=== PATIENT | female | born 1940 | race Caucasian/White ===

== ENCOUNTER → 2018-12-08 | Outpatient (CLI) | payer MEDICARE ==
[2015-09-29 14:14] VITALS: BP 134/62
[~2018-12-08] MED LIST: ALBU1.25 IH; BENZ-8 PO; FERR325T14 PO; FLUT1DIS5 IH; HYDR-3164 PO; HYDR12.58 PO; LEVO137T3 PO; LIALDA1.2 GM PO; LISI10TA2 PO; LOSA100T14 PO; LOVA40TA2 PO; MOME17SP NS; MONT10TA9 PO; MV-M1TAB7 PO; PRED10TA16 PO; PRED1TAB3 PO; RANI300T3 PO; TAMO20TA PO; VENL75CA PO
--- NOTE | 2018-12-08 17:36 | KCIC ---
Double contrast barium enema 12/08/2018 CLINICAL HISTORY: Anemia. Incomplete colonoscopy. TECHNIQUE: A double contrast barium enema was performed under fluoroscopic and radiographic control.. The total fluoroscopic time for this study was 5 minutes 12 seconds. 11 digital spot radiographs were obtained. FINDINGS: An AP digital radiograph abdomen/pelvis was obtained as a weeder thinner. This demonstrated surgical clips in the left upper quadrant of the abdomen. The patient is post kyphoplasty type procedure involving the T12 vertebral body. The abdominal bowel gas pattern is nonobstructive. No radiopaque calculus is seen. There is diffuse osteopenia the visualized bony structures. Degenerative changes are seen involving the lumbar spine and both hips. The entire colon is distended with barium and air. The cecum is in its normal location within the right lower quadrant of the abdomen. Extensive diverticula are seen throughout the colon. No additional mucosal abnormality is seen. No annular constricting lesion is noted. No extrinsic mass effect upon the large bowel is identified. IMPRESSION: Colonic diverticulosis. Otherwise negative study. Electronically signed by: Miguel Bella MD (12/08/2018 5:33 PM) [facility]
== END | disposition home or self-care (01) ==
LOC: KCIC 08:00
PROVIDERS: ATTEND Internal Medicine Gastroenterology
DX: K57.30 Diverticulosis of large intestine without perforation or abscess without bleeding (principal); D64.9 Anemia, unspecified; J45.909 Unspecified asthma, uncomplicated; Z88.2 Allergy status to sulfonamides
CPT/HCPCS: 74270

== ENCOUNTER → 2019-01-19 | Outpatient (CLI) | payer MEDICARE ==
[2015-09-29 14:14] VITALS: BP 134/62
[~2019-01-19] MED LIST changes: +LIDOCAINE 1%/EPI 1:100,000 20 ML VIAL. INJ ONE
--- NOTE | 2019-01-21 14:07 | PATHOLOGY ---
[facility] Accession Number: [id number] . 01 Material submitted: . breast - RIGHT BREAST BIOPSY, 10:00, 5CFN. Modifiers: right, 10:00 . 01 Clinical history: . Right breast BX/mass 10OC 5cfn (1.7cm) . 02 Diagnosis: Breast tissue, right breast mass 10:00 needle biopsies: - INVASIVE DUCTAL CARCINOMA, HIGH GRADE. SEE COMMENT. LBQ/01/21/2019 . 02 Comment: Sections of the right breast mass 10:00 needle biopsies reveal an invasive mammary carcinoma. The tumor cells are present in irregular solid nests which infiltrate a reactive desmoplastic stroma and show little tubule formation. Some of the tumor cell nests show focal tumor necrosis. Tumor cells show moderate to marked nuclear pleomorphism. The tumor shows focal prominent mitoses. There a few associated calcifications. There is no lymphovascular tumor invasion. The invasive carcinoma measures up to 1.1 cm in greatest dimension on the glass slide. The morphologic findings are supportive of the diagnosis of an invasive high grade ductal carcinoma. The case is also examined by Dr. Monoey, who concurs with the diagnosis. Breast prognostic studies will be obtained, the results of which will be reported separately. (JPM/db; 01/20/2019) . 02 Electronically signed: . Josse Sheikh MD, Pathologist NPI- [id number] . 01 Gross description: . The specimen is received in formalin, labeled "Maye Abarca, Rt breast 10oc 5cfn" and consists of 4 distinct needle cores of yellow-booth fibroadipose tissue measuring between 0.6 cm and 1.4 cm in length and 0.2 cm each in diameter which are submitted entirely in A1. The specimen was obtained at 10:15 AM on 01/19/2019 and placed in formalin at 10:20 AM. The cold ischemic time is 5 minutes and the total formalin fixation time is greater than 6 hours but less than 72 hours. (SDY; 01/19/2019) SYU/SYU . 02 Pathologist provided ICD-10: C50.911 . 02 CPT . 708701 Specimen Comment: A courtesy copy of this report has been sent to Specimen Comment: [phone], , . Specimen Comment: Report sent to ,DR BAPTISTE / DR MELO Performed at: 01 [facility] [address], [place], [place] [id number] MD Florentino Farah MD Phone: [phone] Performed at: 02 [facility] [address], [place] [id number] MD Josse Sheikh MD Phone: [phone]
--- NOTE | 2019-01-24 10:48 | RAD ---
Ultrasound-guided right breast biopsy, 01/19/2019: History: Breast mass Previous studies demonstrated a suspicious nodule at the 10:00 location in the right breast. Under local anesthesia, aseptic conditions and sonographic guidance a total of four 14-gauge core samples were obtained from this lesion via a lateral approach. A biopsy marker was then deposited at the biopsy site. Hemostasis was obtained. Two-view postprocedural digital mammograms were then obtained to document position of the biopsy marker which lies at the level of the medial edge of the biopsied mass. The patient tolerated the procedure well and left the department in good condition. The subsequent pathology report indicated the presence of invasive ductal carcinoma, high-grade. This is considered to be concordant finding. Note: The findings were called to personnel in Dr. Rodriguez's office at 10:44 AM on 01/24/2019.
== END | disposition home or self-care (01) ==
LOC: US 09:30
PROVIDERS: ATTEND Surgery
DX: C50.411 Malignant neoplasm of upper-outer quadrant of right female breast (principal); Z88.2 Allergy status to sulfonamides; I10 Essential (primary) hypertension; J45.909 Unspecified asthma, uncomplicated; Z85.3 Personal history of malignant neoplasm of breast; Z90.12 Acquired absence of left breast and nipple; Z90.710 Acquired absence of both cervix and uterus; Z98.890 Other specified postprocedural states; Z90.81 Acquired absence of spleen
CPT/HCPCS: 19083; 77065; 88305; 88361; C1713; 19081; 76942

== ENCOUNTER 2019-01-28 09:22 | Day surgery (SDC) | payer MEDICARE ==
[~2019-01-28] VITALS: Ht 165.1 cm; Wt 86.2 kg
[~2019-01-28 09:22] MED LIST changes: +ACETAMINOPHEN 500 MG TABLET PO ONE; +BUPIVACAINE-EPI 0.25%-1:200000 MPF 30 ML VIAL. ONE; -HYDR-3164 PO; +ISOSULFAN BLUE 50 MG/5 ML VIAL. SQ ONE; -LIDOCAINE 1%/EPI 1:100,000 20 ML VIAL. INJ ONE
[2019-01-28] MEDS ORDERED: LIDOCAINE 2% PF 5 ML VIAL. ONE (10:06)
[2019-01-28] MEDS ORDERED: PROPOFOL 20 ML IV ONE (10:06)
[2019-01-28] MEDS ORDERED: ONDANSETRON PF 4 MG/2 ML VIAL. ONE (10:06)
[2019-01-28] MEDS ORDERED: fentaNYL PF VIAL 100 MCG/2 ML VIAL ONE ×3 (10:07→13:30)
[2019-01-28] MEDS ORDERED: DEXAMETHASONE SOD PHOS 4 MG/ML VIAL ONE (10:07)
[2019-01-28] MEDS ORDERED: ACETAMINOPHEN 500 MG TABLET PO ONE (10:12)
[2019-01-28] MEDS ORDERED: LIDOCAINE WITH 8.4% SOD BICARB 3 ML DISP.SYRIN. INJ ONE (10:15)
--- NOTE | 2019-01-28 11:17 | RAD ---
Right breast sentinel node localization, 01/28/2019: HISTORY: Breast cancer Under aseptic conditions and utilizing ethyl chloride spray for topical anesthesia a total of 0.9 mCi of filtered technetium 99m sulfur colloid mixed with 0.5 cc of 1 percent buffered lidocaine was injected subdermally in the right periareolar region in 4 divided doses. No imaging was performed. The patient was sent to surgery in good condition. Electronically signed by: Jose Godfrey MD (01/28/2019 11:14 AM) [facility]
[2019-01-28] MEDS ORDERED: ISOSULFAN BLUE 50 MG/5 ML VIAL. SQ ONE (11:30)
[2019-01-28] MEDS ORDERED: ePHEDrine PF IN SALINE 50 MG/10 ML SYRINGE. IV ONE (11:33)
--- NOTE | 2019-01-28 12:32 | PDOC4 ---
Operative Note Operative Note Date: 01/28/2019 Preoperative diagnosis: Invasive ductal carcinoma the right breast Postoperative diagnosis: Same Procedure: Right breast lumpectomy with axillary node dissection Surgeon: Michael Specimen: Right breast lumpectomy and right axillary content Dictation: Patient is a 78-year-old female who was found to have a mass of the right breast this underwent ultrasound guided breast biopsy which showed invasive ductal carcinoma. Patient elected to have a lumpectomy with sentinel lymph node biopsy procedure of lumpectomy and sentinel lymph node biopsy was explained to the patient detail risk benefits were also discussed including bleeding infection seroma formation alternatives to this procedure also discussed with the patient who seemed to understand and gave both verbal and written consent to have the procedure performed. Patient was taken to the operating room placed the supine position general anesthesia was initiated once patient was sleep and intubated her chest was prepped and draped usual sterile fashion using ChloraPrep as well as axilla she previously undergone injection of radionucleotide for lymph node mapping. Lymphazurin was injected into 4 quadrants around the nipple areolar complex with 1.5 cm in each quadrant this was massaged into the tissue for 5 minutes. She was then made with the tracer to find the sentinel node unfortunately I think because she had previous reconstruction multiple surgeries did not appear to be working. Incision was made in the right axilla this was carried down to through the subcutaneous anus tissues at cautery again no blue Lymphazurin was seen in the axilla and there was no detectable radionucleotide within the axilla. Some the superficial axilla content was sent for pathology tinges of then turned to the lumpectomy incision was made over the mass in the outer mid quadrant of the breast this is carried down through the subcutaneous tissue using electrocautery to provide hemostasis. The mass was fully excised all the way down to the pectoralis muscle. Tensions are then turned back to the right axilla lower further axillary content were removed and sent for pathology.Aristra was applied to the axillary and breast wounds and then the wounds were then closed in 2 layers a deep layer running 3-0 Vicryl and the skin was approximate for septic or Monocryl. Mastisol Steri- Strips and island dressings were applied patient was awakened and asked bated operating room taken to recovery in stable condition all sponge instrument needle counts listed as correct estimated blood loss 20 mL. REMINGTON BAPTISTE MD January 28, 2019 12:32
--- NOTE | 2019-01-28 12:34 | DISCH ---
DISCHARGE INSTRUCTIONS Condition on Discharge Condition on Discharge: Stable Activity After Discharge Activity Instructions for Disc: Avoid exertion Diet after Discharge Diet after Discharge: Regular Wound Incision Care Other wound/incision instructi: Kathy shower in 24 hours Contacting the after DC Call your doctor for: If your condition worsens Follow-Up Follow up with: Dr. Baptiste in 2 weeks REMINGTON BAPTISTE MD January 28, 2019 12:34
[2019-01-28] MEDS ORDERED: HYDR-3164 PO (12:51)
[2019-01-28] MEDS ORDERED: HYDROcodone/APAP 5/325MG 1 TAB TABLET PO ONE ×2 (13:00)
[2019-01-28 14:24] VITALS: BP 160/64
[2019-01-28] MEDS ORDERED: fentaNYL PF VIAL 100 MCG/2 ML VIAL IV ONE (15:30)
--- NOTE | 2019-02-03 15:06 | PATHOLOGY ---
[facility] Accession Number: [id number] . 01 Material submitted: . PART A: axillary tail of breast - RIGHT AXILLARY CONTENT. Modifiers: right PART B: breast - RIGHT LUMPECTOMY. Modifiers: right PART C: breast - RIGHT BREAST ADDITIONAL DEEP TISSUE. Modifiers: right PART D: axillary tail of breast - RIGHT AXILLARY CONTENT. Modifiers: right . 01 Clinical history: . Breast cancer. . 02 Diagnosis: A. Fibroadipose tissue, right axillary content: - Ectopic mammary tissue, focal, showing no significant pathologic abnormalities. - No lymph nodes identified. . B. Segment of breast tissue, right breast lumpectomy: - INVASIVE DUCTAL CARCINOMA, HIGH GRADE, FORMING A TUMOR MASS HAVING IRREGULAR MARGINS MEASURING APPROXIMATELY 1.8 CM IN GREATEST DIMENSION. - DUCTAL CARCINOMA IN SITU, HIGH-GRADE, SOLID AND CRIBRIFORM TYPE. - INVASIVE CARCINOMA IS FOCALLY APPROXIMATELY 0.2 CM FROM THE CLOSEST MEDIAL MARGIN OF RESECTION. - DUCTAL CARCINOMA IN SITU IS FOCALLY APPROXIMATELY 0.4 CM FROM THE CLOSEST MEDIAL MARGIN OF RESECTION. - Previous biopsy site changes. - Proliferative fibrocystic changes with focal moderate/florid ductal epithelial hyperplasia. . C. Fibroadipose tissue, right breast additional deep tissue: - Negative for tumor. . D. Fibroadipose tissue and lymph nodes, right axillary contents: - Fourteen lymph nodes negative for tumor (0/14). (JPM:[facility]; 02/01/2019) . . SURGICAL PATHOLOGY CANCER CASE SUMMARY . Protocol posting date: October 2018 . INVASIVE CARCINOMA OF THE BREAST: Resection . Procedure ___ Other (specify): Lumpectomy . Specimen Laterality ___ Right . Tumor Site (select all that apply, as appropriate) ___ Upper outer quadrant . Tumor Size ___ Greatest dimension of largest invasive focus >1 mm (specify exact measurement) (millimeters): 18 mm . Histologic Type ___ Invasive carcinoma of no special type (invasive ductal carcinoma, not otherwise specified) . Histologic Grade (Lufkin Histologic Score) Glandular (Acinar)/Tubular Differentiation ___ Score 3 (<10% of tumor area forming glandular/tubular structures) . Nuclear Pleomorphism ___ Score 2 (cells larger than normal with open vesicular nuclei, visible nucleoli, and moderate variability in both size and shape) . Mitotic Rate ___ Score 3 . Overall Grade ___ Grade 3 (scores of 8 or 9) . Tumor Focality ___ Single focus of invasive carcinoma . Ductal Carcinoma In Situ (DCIS) ___ Present ___ Negative for extensive intraductal component (EIC) . ARCHITECTURAL PATTERNS ___ Solid ___ Cribriform . Nuclear Grade (if DCIS is present in specimen) ___ Grade II - III . Necrosis (If DCIS is present in specimen) ___ Present, focal (small foci or single cell necrosis) . Lobular Carcinoma In Situ (LCIS) ___ No LCIS in specimen . Margins . Invasive Carcinoma Margins (required only if residual invasive carcinoma is present in specimen) ___ Uninvolved by invasive carcinoma ___ Distance from closest margin (millimeters): 2 mm ___ Specify closest margin (required only if <10mm): medial margin . DCIS Margins (required only if DCIS is present in specimen) ___ Uninvolved by DCIS ___ Distance from closest margin (millimeters): 4 mm ___ Specify closest margin (required only if <10mm): medial margin . Regional Lymph Nodes ___ Uninvolved by tumor cells ___ Number of Lymph Nodes Examined: 14 ___ Number of Mcdonald Nodes Examined (if applicable): 0 . Lymphovascular Invasion ___ Not identified . Pathologic Stage Classification (pTNM, AJCC 8th Edition) . Primary Tumor (pT) ___ pT1c:Tumor >10 mm but =20 mm in greatest dimension . Regional Lymph Nodes (pN) ___ pN0:No regional lymph node metastasis identified or ITCs only# . Additional Pathologic Findings ___ See diagnoses . . Microcalcifications (select all that apply) + ___ Present in DCIS + ___ Present in invasive carcinoma + ___ Present in non-neoplastic tissue . Clinical History (select all that apply) The current clinical/radiologic breast findings for which this surgery is performed include: ___ Palpable mass . Radiologic Finding (select all that apply) ___ Mass or architectural distortion . (JPM:[facility]; 02/03/2019) QMS/02/03/2019 . 02 Electronically signed: . Josse Sheikh MD, Pathologist NPI- [id number] . 01 Gross description: . A. Received in formalin labeled "Maye Abarca, 1. right axillary content" is a portion of yellow-booth lobulated fibroadipose tissue measuring 5.5 x 3.6 x 1.3 cm. The specimen is palpated to reveal no grossly identifiable lymph nodes. The fibroadipose tissue is submitted entirely in cassettes A1-A3. . B. Received in formalin labeled "Maye Abarca, right lumpectomy, long stitch lateral, short stitch superior" is an oriented breast lumpectomy specimen weighing 84 g and measuring 7.3 cm from anterior to posterior, 7.0 cm from superior to inferior, and 4.4 cm from medial to lateral. The specimen is inked as follows: superior-red, inferior-blue, anterior-green, posterior-black, lateral-orange, medial-yellow. The specimen is sectioned from anterior to posterior into 13 slices. Within slices 9-11 is a booth-white solid stellate mass measuring 3.0 x 1.7 x 1.5 cm. The mass measures to the margins as follows: 1.5 cm to superior, 0.9 cm to inferior, 3.5 to anterior, 1.4 cm to posterior, 1.2 cm to lateral, and 0.2 cm to medial. An S shaped biopsy clip is identified in slice 9. The uninvolved breast parenchyma is yellow-booth lobulated. Sow Manager sections are submitted as follows: B1 field sales representative slice 1, anterior margin, perpendicular sections B2 field sales representative slice 8 (uninvolved), adjacent to lesion B3-B6 entire slice 9 B7-B8 field sales representative slice 10 B9 field sales representative slice 11 B10 field sales representative slice 13, posterior margin, perpendicular sections The specimen is removed from the patient and placed in formalin at unspecified times on January 28, 2019. The specimen is removed from formalin at 1850 on January 30, 2019. . C. Received in formalin labeled "Maye Abarca, right breast additional deep tissue" is an irregular portion of yellow-booth lobulated fibroadipose tissue measuring 6.1 x 3.3 x 0.8 cm. The true margin is not specified. One aspect is inked blue and the opposite aspect is inked black. The specimen is serially sectioned and submitted entirely in cassettes C1-C4. . D. Received in formalin labeled "Maye Abarca, 4. right axillary content" is a portion of yellow-booth lobulated fibroadipose tissue measuring 8.6 x 6.0 x 1.5 cm. The specimen is palpated to reveal multiple pink-booth lymph nodes ranging from 0.3-3.7 cm in greatest dimension. The specimen is submitted entirely as follows: D1 multiple whole lymph nodes D2-D5 one bisected lymph node in each cassette D6-D9 largest lymph node, serially sectioned and divided between four cassettes D10-D14 remaining fibroadipose tissue. ([facility]; 01/30/2019) SYC/SYC . 02 Pathologist provided ICD-10: C50.411, D05.11, N60.11, N62 . 02 CPT . 609228, 010696, 109721, 079893 Specimen Comment: A courtesy copy of this report has been sent to Specimen Comment: [phone]. Specimen Comment: Report sent to DR MELO Performed at: 01 [facility] [address], [place] [id number] MD Florentino Farah MD Phone: [phone] Performed at: 02 [facility] [address] [place], [place] [id number] MD Josse Sheikh MD Phone: [phone]
== END 2019-01-28 14:24 | disposition home or self-care (01) ==
LOC: NM 09:22
PROVIDERS: ATTEND Surgery
DX: C50.411 Malignant neoplasm of upper-outer quadrant of right female breast (principal); Z88.2 Allergy status to sulfonamides; I10 Essential (primary) hypertension; Z87.01 Personal history of pneumonia (recurrent); F32.9 Major depressive disorder, single episode, unspecified; J45.909 Unspecified asthma, uncomplicated; E03.9 Hypothyroidism, unspecified; E78.5 Hyperlipidemia, unspecified; D64.9 Anemia, unspecified; Z90.12 Acquired absence of left breast and nipple; Z90.81 Acquired absence of spleen; Z90.721 Acquired absence of ovaries, unilateral; Z98.890 Other specified postprocedural states; Z90.710 Acquired absence of both cervix and uterus; Z82.49 Family history of ischemic heart disease and other diseases of the circulatory system; Z82.5 Family history of asthma and other chronic lower respiratory diseases; Z81.8 Family history of other mental and behavioral disorders; Z79.899 Other long term (current) drug therapy; Z83.49 Family history of other endocrine, nutritional and metabolic diseases
CPT/HCPCS: 19301; 38525; 38792; 88305; 88307; 96374; A7015; A9541; J0171; J0696; J1100; J2001; J2405; J2704; J3010; J7120; Q9968

== ENCOUNTER 2019-04-14 06:20 | Day surgery (SDC) | payer MEDICARE ==
[~2019-04-14] VITALS: Ht 165.1 cm; Wt 82.5 kg
[~2019-04-14 06:20] MED LIST changes: -ACETAMINOPHEN 500 MG TABLET PO ONE; +BUPIVACAINE MPF 0.25% 30 ML VIAL. ONE; -BUPIVACAINE-EPI 0.25%-1:200000 MPF 30 ML VIAL. ONE; +CHOL10003 PO; +FOLI1TAB16 PO; +HEPARIN PF 500 UNIT/5 ML DISP.SYRIN. IV ONE; +HEPARIN for IV BOLUS 10,000 UNIT/10 ML VIAL. ONE; +HYDR-3164 PO; +IPRA3AMP29 NEB; -ISOSULFAN BLUE 50 MG/5 ML VIAL. SQ ONE; +MONT10TA49 PO; -MONT10TA9 PO; +TRAM50TA PO; +VENTOLIN HFA18 GM INH
[2019-04-14] MEDS ORDERED: HEPARIN PF 500 UNIT/5 ML DISP.SYRIN. IV ONE (06:39)
[2019-04-14] MEDS ORDERED: PROCHLORPERAZINE 10 MG/2 ML VIAL. IV PRN (07:00)
[2019-04-14] MEDS ORDERED: ONDANSETRON PF 4 MG/2 ML VIAL. IV PRN (07:00)
[2019-04-14] MEDS ORDERED: MORPHINE SULFATE 2 MG/ML VIAL. IV PRN (07:00)
[2019-04-14] MEDS ORDERED: IV RINGERS,LACTATED 1000ML 1,000 ML IV SCH (07:00)
[2019-04-14] MEDS ORDERED: HYDROmorphone 2 MG/ML VIAL IV PRN (07:00)
[2019-04-14] MEDS ORDERED: fentaNYL PF VIAL 100 MCG/2 ML VIAL IV PRN ×2 (07:00)
[2019-04-14] MEDS ORDERED: LIDOCAINE 2% PF 5 ML VIAL. ONE (07:34)
[2019-04-14] MEDS ORDERED: PROPOFOL 50 ML IV ONE (07:34)
[2019-04-14] MEDS ORDERED: fentaNYL PF VIAL 100 MCG/2 ML VIAL ONE (07:35)
--- NOTE | 2019-04-14 07:47 | PDOC1 ---
History and Physical Date of Admission Date of Admission DATE: 04/14/19 TIME: 07:43 Identification/Chief Complaint Chief Complaint Right breast cancer Source Source: Patient History of Present Illness History of Present Illness 79-year-old female recently underwent a lumpectomy of the right breast found to have invasive carcinoma the breast underwent sentinel node dissection and is now needing long-term venous access for chemotherapy Past Medical History Cardiovascular: HTN Pulmonary: Asthma GI: No pertinent hx Heme/Onc: Anemia NOS Hepatobiliary: No pertinent hx Psych: No pertinent hx Rheumatologic: No pertinent hx Infectious disease: No pertinent hx ENT: No pertinent hx Renal/: No pertinent hx Endocrine: Hypothyroidism Past Surgical History Past Surgical History: Mastectomy, Other (thyroidectomy Keri fundoplication splenectomy right breast lumpectomy) Family History Family History: No Significant Social History Smoke: No ALCOHOL: none Drugs: None Current Medications Current Medications Current Medications Ondansetron HCl (Zofran) 4 mg PRN Q6HRS PRN IV NAUSEA/VOMITING; Start 04/14/19 at 07:00; Stop 04/15/19 at 06:59 Fentanyl Citrate (Fentanyl 2ml Vial) 25 mcg PRN Q5MIN PRN IV MILD PAIN 1-3; Start 04/14/19 at 07:00; Stop 04/15/19 at 06:59 Fentanyl Citrate (Fentanyl 2ml Vial) 50 mcg PRN Q5MIN PRN IV MODERATE TO SEVERE PAIN; Start 04/14/19 at 07:00; Stop 04/15/19 at 06:59 Morphine Sulfate (Morphine Sulfate) 1 mg PRN Q10MIN PRN IV SEVERE PAIN 7-10; Start 04/14/19 at 07:00; Stop 04/15/19 at 06:59 Ringer's Solution 1,000 ml @ 30 mls/hr Q24H IV Last administered on 04/14/19at 06:59; Start 04/14/19 at 07:00; Stop 04/14/19 at 18:59 Hydromorphone HCl (Dilaudid) 0.5 mg PRN Q10MIN PRN IV SEV PAIN, Second choice; Start 04/14/19 at 07:00; Stop 04/15/19 at 06:59 Prochlorperazine Edisylate (Compazine) 5 mg PACU PRN PRN IV NAUSEA, MRX1; Start 04/14/19 at 07:00; Stop 04/15/19 at 06:59 Cefazolin Sodium/ Dextrose 50 ml @ 100 mls/hr 1X PREOP PRN IV PRIOR TO PROCEDURE; Start 04/14/19 at 06:00; Stop 04/14/19 at 18:00 Heparin Sodium (Porcine) (Hep Lock Adult) 500 unit STK-MED ONCE IV ; Start 04/14/19 at 06:19; Stop 04/14/19 at 07:19; Status DC Heparin Sodium (Porcine) (Heparin Sodium) 10,000 unit STK-MED ONCE .ROUTE ; Start 04/14/19 at 06:19; Stop 04/14/19 at 07:19; Status DC Bupivacaine HCl (Sensorcaine Mpf 0.25%) 30 ml STK-MED ONCE .ROUTE ; Start 04/14/19 at 06:19; Stop 04/14/19 at 07:19; Status DC Lidocaine HCl (Lidocaine Pf 2% Vial) 5 ml STK-MED ONCE .ROUTE ; Start 04/14/19 at 07:34; Stop 04/14/19 at 07:35; Status DC Propofol 50 ml @ As Directed STK-MED ONCE IV ; Start 04/14/19 at 07:34; Stop 04/14/19 at 07:35; Status DC Fentanyl Citrate (Fentanyl 2ml Vial) 100 mcg STK-MED ONCE .ROUTE ; Start 04/14/19 at 07:35; Stop 04/14/19 at 07:36; Status DC Heparin Sodium (Porcine) (Hep Lock Adult) 500 unit STK-MED ONCE IV ; Start 04/14/19 at 06:39; Stop 04/14/19 at 07:39; Status DC Active Scripts Active Reported Tramadol Hcl 50 Mg Tablet 50 Mg PO Q6HRS PRN Vitamin D3 (Cholecalciferol (Vitamin D3)) 1,000 Unit Tablet 1,000 Unit PO DAILY Folic Acid 1 Mg Tablet 1 Mg PO DAILY Duoneb 0.5-3(2.5) Mg/3 Ml (Albuterol/Ipratropium) 3 Ml Ampul.neb 3 Ml NEB QID Ventolin Hfa Inhaler (Albuterol Sulfate) 18 Gm Hfa.aer.ad 2 Puff INH QID Losartan Potassium 100 Mg Tablet 100 Mg PO DAILY Hydrochlorothiazide Tablet (Hydrochlorothiazide) 12.5 Mg Tablet 25 Mg PO DAILY Zantac (Ranitidine Hcl) 300 Mg Tablet 300 Mg PO DAILY Montelukast Sodium Tablet (Montelukast Sodium) 10 Mg Tablet 10 Mg PO HS Effexor Xr (Venlafaxine Hcl) 75 Mg Cap.er.24h 150 Mg PO DAILY MDD 150 Lovastatin 40 Mg Tablet 40 Mg PO HS Levothyroxine Sodium 137 Mcg Tablet 137 Mcg PO DAILY Allergies Allergies: Coded Allergies: Sulfa (Sulfonamide Antibiotics) (Verified Allergy, Intermediate, Hives, 04/14/19) Physical Exam General: Alert, Oriented X3, Cooperative, No acute distress HEENT: Atraumatic, PERRLA, EOMI Lungs: Clear to auscultation, Normal air movement Heart: RRR, no murmurs Breasts: Not examined Abdomen: Normal bowel sounds, Soft, No tenderness Rectal Exam: not examined Extremities: No edema Skin: No significant lesion Neuro: Normal speech Psych/Mental Status: Mental status NL Vitals Vitals Vital Signs Date Time Temp Pulse Resp B/P (MAP) Pulse Ox O2 Delivery O2 Flow Rate FiO2 04/14/19 06:57 97.6 71 18 118/48 97 Room Air 97.6 VTE Prophylaxis Ordered VTE Prophylaxis Devices: Yes VTE Pharmacological Prophylaxi: Contraindicated Assessment/Plan Assessment/Plan Breast cancer Plan Port-A-Cath for long-term venous access for chemotherapy REMINGTON BAPTISTE MD Apr 14, 2019 07:47
[2019-04-14] MEDS ORDERED: ceFAZolin 2GM PREMIX 2 GM/50 ML BAG IV ONE (08:00)
[2019-04-14] MEDS ORDERED: PHENYLEPHRINE in 0.9% NACL PF 1 MG/10 ML SYRINGE. IV ONE (08:13)
--- NOTE | 2019-04-14 08:51 | PDOC4 ---
Operative Note Operative Note Date: 04/14/2019 Preoperative diagnosis: Right breast cancer Postoperative diagnosis: Same Procedure: Left-sided Port-A-Cath placement Surgeon: Michael Specimen: None Dictation: Patient is a 79-year-old female recently underwent lumpectomy of the right breast for right breast cancer. She is now needing long-term venous access for chemotherapy so procedure Port-A-Cath placement was explained to the patient in detail risks benefits were also discussed including bleeding infection pneumothorax alternatives to this procedure also discussed with the patient who seemed to understand and gave both verbal and written consent to have the procedure performed. Patient was taken to the operating room placed in supine position IV sedation was initiated by anesthesia was patient's probe was stated area on the left deltopectoral groove was injected with quarter percent Marcaine with epinephrine incision was made with 15 blade scalpel was carried down through the subcutaneous tissue looking for the cephalic vein unfortunately cephalic vein could not be identified likely affected by her previous left mastectomy and reconstruction. The subclavian vein was then accessed with a long needle wire was placed under fluoroscopy which showed it transverse into the superior vena cava peel-away dilator was placed over the wire under fluoroscopy the dilator was then removed and the Port-A-Cath catheter was placed through the peel-away into this. Vena cava peel-away was then removed the port was placed on the end of the catheter pocket was made in the anterior chest wall with blunt dissection and the port was sewn into place with 3-0 Prolene. Port was then accessed with good blood return and easily flushed with 100 units per mL of h eparin. The catheter then was packed with 1000 units per millimeter heparin 1- 1/2 mL. Wound was then closed in 2 layers a deep layer running 3-0 Vicryl and skin was approximate for septic and a Monocryl Mastisol Steri-Strips and island dressing were applied. Patient was awakened and asked bated operating room taken to recovery in stable condition all sponge instrument needle counts listed as correct estimated blood loss 5 mL REMINGTON BAPTISTE MD Apr 14, 2019 08:51
[2019-04-14] MEDS ORDERED: HYDR-3164 PO (09:32)
--- NOTE | 2019-04-14 09:32 | RAD ---
PORTABLE CHEST 1V History: Port-A-Cath placement. COMPARISON: September 26, 2015. FINDINGS: There is a left chest wall port in place, the tip is difficult to define but appears to be in the region of the cavoatrial junction. Heart size remains enlarged. No evidence of pneumothorax. No focal infiltrate. No evidence of pleural effusion. Degenerative changes about both shoulders. IMPRESSION: Left chest wall port placement. Electronically signed by: Jeronimo Ervin MD (04/14/2019 9:28 AM) [facility]
[2019-04-14 09:42] VITALS: BP 130/51
--- NOTE | 2019-04-14 16:13 | RAD ---
EXAM: Single intraoperative fluoroscopic image of the chest was submitted for evaluation DATE: 04/14/2019 8:27 AM INDICATION: Port placement COMPARISON: 09/26/2015 FINDINGS/ IMPRESSION: 1 very limited intraoperative fluoroscopic views of the chest submitted from the OR. Exam shows steps toward port placement with visualization of the catheter tubing extending to at least the level of the proximal right atrium, distal tip is not included in the [id number]. Note, this does not constitute a diagnostic quality exam. Please see operative report for full details. Electronically signed by: Vin Sue MD (04/14/2019 4:10 PM) [facility]
== END 2019-04-14 09:52 | disposition home or self-care (01) ==
LOC: SURG 06:20
PROVIDERS: ATTEND Surgery
DX: Z45.2 Encounter for adjustment and management of vascular access device (principal); C50.911 Malignant neoplasm of unspecified site of right female breast; I10 Essential (primary) hypertension; J45.909 Unspecified asthma, uncomplicated; D64.9 Anemia, unspecified; E89.0 Postprocedural hypothyroidism; Z90.11 Acquired absence of right breast and nipple; Z88.1 Allergy status to other antibiotic agents
CPT/HCPCS: 36561; 71045; 77001; C1788; J0696; J1644; J2001; J2370; J2704; J3010; J3490; 36556

== ENCOUNTER → 2019-06-14 | Outpatient (CLI) | payer MEDICARE ==
[~2019-06-14] MED LIST changes: -BUPIVACAINE MPF 0.25% 30 ML VIAL. ONE; -HEPARIN PF 500 UNIT/5 ML DISP.SYRIN. IV ONE; -HEPARIN for IV BOLUS 10,000 UNIT/10 ML VIAL. ONE
--- NOTE | 2019-06-14 12:36 | KCIC ---
EXAM: Dual energy x-ray absorptiometry (DEXA). HISTORY: Postmenopausal female presents for osteoporosis screening. COMPARISON: None. TECHNIQUE: Dual energy x-ray absorptiometry of the lumbar spine and left hip was performed. Calculation of bone mineral density based on standard deviations above or below the expected young adult normal value (T-score) was completed. FINDINGS: The average bone mineral density in the 1st through 4th lumbar vertebrae is 1.205 g/cmxcm, corresponding with a T-score of 1.2. The average total bone mineral density in the left hip is 0.961 g/cmxcm, corresponding with a T-score of 0.2. IMPRESSION: Normal bone mineral density. Note: Definitions established by the World Health Organization: 1. Normal: T-score is -1.0 or above. 2. Osteopenia: T-score is between -1.0 and -2.5 . 3. Osteoporosis: T-score is -2.5 or below. Electronically signed by: Lanie Sumner MD (06/14/2019 12:33 PM) [facility]
== END | disposition home or self-care (01) ==
LOC: KCIC DEXA 11:09
PROVIDERS: ATTEND Internal Medicine Hematology & Oncology
DX: C50.811 Malignant neoplasm of overlapping sites of right female breast (principal); Z78.0 Asymptomatic menopausal state; Z92.21 Personal history of antineoplastic chemotherapy
CPT/HCPCS: 77080

== ENCOUNTER 2019-08-26 09:59 | Day surgery (SDC) | payer MEDICARE ==
[~2019-08-26] VITALS: Ht 165.1 cm; Wt 82.0 kg
[~2019-08-26 09:59] MED LIST changes: +ACETAMINOPHEN 500 MG TABLET PO ONE; +HYDROmorphone 2 MG/ML VIAL IV PRN; +IV RINGERS,LACTATED 1000ML 1,000 ML IV SCH; +LIDOCAINE 1% PF 2 ML VIAL. ID PRN; +MORPHINE SULFATE 2 MG/ML VIAL. IV PRN; +ONDANSETRON PF 4 MG/2 ML VIAL. IV PRN; +PROCHLORPERAZINE 10 MG/2 ML VIAL. IV PRN; +fentaNYL PF VIAL 100 MCG/2 ML VIAL IV PRN
[2019-08-26] MEDS ORDERED: SEVOFLURANE 31 TO 60 MINUTES. IH ONE (10:39)
[2019-08-26] MEDS ORDERED: PROPOFOL 20 ML IV ONE (10:40)
[2019-08-26] MEDS ORDERED: LIDOCAINE 2% PF 5 ML VIAL. ONE (10:40)
[2019-08-26] MEDS ORDERED: fentaNYL PF VIAL 100 MCG/2 ML VIAL ONE ×3 (10:40→13:40)
[2019-08-26] MEDS ORDERED: DEXAMETHASONE SOD PHOS 4 MG/ML VIAL ONE (10:40)
[2019-08-26] MEDS ORDERED: ONDANSETRON PF 4 MG/2 ML VIAL. ONE (10:40)
[2019-08-26] MEDS ORDERED: BUPIVACAINE-EPI 0.25%-1:200000 MPF 30 ML VIAL. INJ ONE (11:15)
[2019-08-26] MEDS: fentaNYL PF VIAL 100 MCG/2 ML VIAL IV PRN ×3 (13:07→13:45)
--- NOTE | 2019-08-26 13:09 | PDOC4 ---
Operative Note Operative Note Date: 08/26/2019 Preoperative diagnosis: Right breast infected seroma Postoperative diagnosis: Same Procedure: Incision and drainage of seroma with drain placement Specimen: Cultures Surgeon: Michael Dictation: Patient is a 79-year-old female underwent lumpectomy of the right breast several months ago is been undergoing radiation chemotherapy for treatment was completed and she developed a erythematous tender right breast after her last treatment. Ultrasound shows large fluid collection within the breast likely infected. Procedure of incision and drainage with drain placement was explained to the patient detail risk benefits were also discussed including bleeding infection alternatives to this procedure also discussed with patient who seemed to understand and gave both verbal and written consent to have the procedure performed. A she was taken to the operating room placed in supine position general anesthesia was initiated once patient was sleep and intubated her right breast was prepped and draped usual sterile fashion using ChloraPrep and area on the lateral aspect of the breast was incised with a 15 blade scalpel copious amounts of seroma appearing fluid was aspirated cultures were taken a 7 mm flat PHILLIP drain was then placed through separate incision on the inferior aspect of her breast was placed in the breast cavity was sewn into place with a 3-0 nylon suture the wound was then closed with a 30 single interrupted nylon suture wounds were dressed with 4 x 4's and Medipore tape. Patient was awakened and bated in the operating room taken to recovery in stable condition all sponge instrument needle counts listed as correct estimate blood loss 5 mL REMINGTON BAPTISTE MD Aug 26, 2019 13:09
--- NOTE | 2019-08-26 13:10 | DISCH ---
DISCHARGE INSTRUCTIONS Condition on Discharge Condition on Discharge: Stable Activity After Discharge Activity Instructions for Disc: Avoid exertion Diet after Discharge Diet after Discharge: Regular Wound Incision Care Other wound/incision instructi: empty drain daily and record drainage amounts Contacting the DRLucinda after DC Call your doctor for: If your condition worsens Follow-Up Follow up with: Dr. Baptiste in 1 week REMINGTON BAPTISTE MD Aug 26, 2019 13:10
[2019-08-26] MEDS ORDERED: HYDR-2761 PO (13:14)
[2019-08-26] MEDS ORDERED: HYDROcodone/APAP 5/325MG 1 TAB TABLET PO ONE ×2 (13:30)
[2019-08-26 14:00] VITALS: BP 125/54
[2019-08-26] MEDS ORDERED: HEPARIN PF 500 UNIT/5 ML DISP.SYRIN. IVP ONE (14:00)
== END 2019-08-26 14:14 | disposition home or self-care (01) ==
LOC: SURG 09:59
PROVIDERS: ATTEND Surgery
DX: N64.89 Other specified disorders of breast (principal); I10 Essential (primary) hypertension; E78.00 Pure hypercholesterolemia, unspecified; K44.9 Diaphragmatic hernia without obstruction or gangrene; K51.90 Ulcerative colitis, unspecified, without complications; E89.0 Postprocedural hypothyroidism; D64.9 Anemia, unspecified; F41.9 Anxiety disorder, unspecified; F32.9 Major depressive disorder, single episode, unspecified; E66.9 Obesity, unspecified; Z68.30 Body mass index [BMI] 30.0-30.9, adult; Z98.49 Cataract extraction status, unspecified eye; Z90.710 Acquired absence of both cervix and uterus; Z90.12 Acquired absence of left breast and nipple; Z90.721 Acquired absence of ovaries, unilateral; Z72.89 Other problems related to lifestyle; Z85.3 Personal history of malignant neoplasm of breast; Z96.1 Presence of intraocular lens
CPT/HCPCS: 10140; 76942; 87071; 87075; J1100; J2001; J2405; J2704; J3010

== ENCOUNTER 2019-09-02 11:00 | Emergency (ER) | payer MEDICARE ==
[~2019-09-02] VITALS: Ht 165.1 cm; Wt 79.4 kg
[~2019-09-02 11:00] MED LIST changes: -ACETAMINOPHEN 500 MG TABLET PO ONE; +HYDR-2761 PO; -HYDROmorphone 2 MG/ML VIAL IV PRN; -IV RINGERS,LACTATED 1000ML 1,000 ML IV SCH; -LIDOCAINE 1% PF 2 ML VIAL. ID PRN; -MORPHINE SULFATE 2 MG/ML VIAL. IV PRN; -ONDANSETRON PF 4 MG/2 ML VIAL. IV PRN; -PROCHLORPERAZINE 10 MG/2 ML VIAL. IV PRN; -fentaNYL PF VIAL 100 MCG/2 ML VIAL IV PRN
[2019-09-02 12:02] LABS: BASO # 0.1 x10^3/uL (0.0-0.2); BASO % 1 % (0-3); EOS # 0.2 x10^3/uL (0.0-0.7); EOS % 3 % (0-3); HEMOGLOBIN 11.5 g/dL (12.0-15.5); LYMPH # 1.4 x10^3/uL (1.0-4.8); LYMPH % 19 % (24-48); MEAN CORPUSCULAR HEMOGLOBIN 30 pg (25-35); MEAN CORPUSCULAR HGB CONC 33 g/dL (31-37); MEAN CORPUSCULAR VOLUME 90 fL (79-100); MONO # 0.8 x10^3/uL (0.0-1.1); MONO % 11 % (0-9); NEUT # 4.9 x10^3/uL (1.8-7.7); NEUT % 66 % (31-73); PLATELET COUNT 576 x10^3/uL (140-400); RED CELL DISTRIBUTION WIDTH 14.7 % (11.5-14.5); WHITE BLOOD COUNT 7.3 x10^3/uL (4.0-11.0)
[2019-09-02 12:13] LABS: CALCIUM 8.9 mg/dL (8.5-10.1); CREATININE 1.1 mg/dL (0.6-1.0); GFR 48.2; POTASSIUM 3.7 mmol/L (3.5-5.1)
[2019-09-02 12:19] LABS: ALBUMIN 3.1 g/dL (3.4-5.0); ALBUMIN/GLOBULIN RATIO 0.8 (1.0-1.7); TOTAL BILIRUBIN 0.2 mg/dL (0.2-1.0); TOTAL PROTEIN 6.9 g/dL (6.4-8.2)
[2019-09-02 12:30] VITALS: BP 136/65
--- NOTE | 2019-09-02 12:46 | PHYS DOC ---
Past Medical History Past Medical History: Anemia, Asthma, Hypertension, Other Additional Past Medical Histor: BREAST CANCER, Past Surgical History: Other Additional Past Surgical Histo: LEFT MASECTOMY Alcohol Use: Occasionally Drug Use: None Adult General Chief Complaint Chief Complaint: OTHER COMPLAINTS [facility] HPI Patient is a 79-year-old female who presents with complaint of leakage of fluid around her PHILLIP drain, saturating her clothing this morning. Patient had gone in for lumpectomy and later had seen Dr. Rodriguez and he had placed a PHILLIP drain for suspected infection and placed her on antibiotics. Patient states that she has been continuing to have drainage from the site and over the last 3 days she's had approximately 30 mL's of serosanguineous drainage per day. She states that today for the first time she noticed a lot of drainage around the site that saturated her clothing. She denies any increase in pain to the area. She denies any fever.[] Review of Systems Review of Systems Constitutional: Denies fever or chills [] Respiratory: Denies cough or shortness of breath [] Cardiovascular: No additional information not addressed in HPI [] GI: Denies abdominal pain, nausea, vomiting or diarrhea [] Integument: Denies rash or skin lesions [] Neurologic: Denies headache, focal weakness or sensory changes [] All other systems were reviewed and found to be within normal limits, except as documented in this note. Allergies Allergies Allergies Coded Allergies Type Severity Reaction Last Updated Verified Sulfa (Sulfonamide Antibiotics) Allergy Intermediate Hives 08/26/19 Yes Physical Exam Physical Exam Constitutional: Well developed, well nourished, no acute distress, non-toxic appearance. [] HENT: Normocephalic, atraumatic, bilateral external ears normal, oropharynx moist, no oral exudates, nose normal. [] Eyes: PERRLA, EOMI, conjunctiva normal, no discharge. [] Neck: Normal range of motion, no tenderness, supple, no stridor. [] Cardiovascular: Regular rate and rhythm[] Lungs & Thorax: Bilateral breath sounds clear to auscultation [] Abdomen: Bowel sounds normal, soft, no tenderness. [] Skin: Wound site on right breast was evaluated with nurse ore washer present and patient's dressing is noted to be damp. Drainage noted to be straw-colored and slightly cloudy. Tissue surrounding the PHILLIP drain is indurated but no significant erythema or warmth is noted. [] Extremities: No tenderness, no cyanosis, no clubbing, ROM intact. [] Neurologic: Alert and oriented X 3, no focal deficits noted. [] Current Patient Data Vital Signs Vital Signs Date Time Temp Pulse Resp B/P (MAP) Pulse Ox O2 Delivery O2 Flow Rate FiO2 09/02/19 11:12 97.6 86 18 131/61 (84) 99 Room Air 97.6 Lab Values Laboratory Tests Test 09/02/19 11:57 White Blood Count 7.3 x10^3/uL (4.0-11.0) Red Blood Count 3.90 x10^6/uL (3.50-5.40) Hemoglobin 11.5 g/dL (12.0-15.5) L Hematocrit 35.0 % (36.0-47.0) L Mean Corpuscular Volume 90 fL (79-100) Mean Corpuscular Hemoglobin 30 pg (25-35) Mean Corpuscular Hemoglobin Concent 33 g/dL (31-37) Red Cell Distribution Width 14.7 % (11.5-14.5) H Platelet Count 576 x10^3/uL (140-400) H Neutrophils (%) (Auto) 66 % (31-73) Lymphocytes (%) (Auto) 19 % (24-48) L Monocytes (%) (Auto) 11 % (0-9) H Eosinophils (%) (Auto) 3 % (0-3) Basophils (%) (Auto) 1 % (0-3) Neutrophils # (Auto) 4.9 x10^3/uL (1.8-7.7) Lymphocytes # (Auto) 1.4 x10^3/uL (1.0-4.8) Monocytes # (Auto) 0.8 x10^3/uL (0.0-1.1) Eosinophils # (Auto) 0.2 x10^3/uL (0.0-0.7) Basophils # (Auto) 0.1 x10^3/uL (0.0-0.2) Sodium Level 139 mmol/L (136-145) Potassium Level 3.7 mmol/L (3.5-5.1) Chloride Level 102 mmol/L (98-107) Carbon Dioxide Level 28 mmol/L (21-32) Anion Gap 9 (6-14) Blood Urea Nitrogen 20 mg/dL (7-20) Creatinine 1.1 mg/dL (0.6-1.0) H Estimated GFR (Cockcroft-Gault) 48.2 BUN/Creatinine Ratio 18 (6-20) Glucose Level 110 mg/dL (70-99) H Calcium Level 8.9 mg/dL (8.5-10.1) Total Bilirubin 0.2 mg/dL (0.2-1.0) Aspartate Amino Transferase (AST) 15 U/L (15-37) Alanine Aminotransferase (ALT) 19 U/L (14-59) Alkaline Phosphatase 60 U/L (46-116) Total Protein 6.9 g/dL (6.4-8.2) Albumin 3.1 g/dL (3.4-5.0) L Albumin/Globulin Ratio 0.8 (1.0-1.7) L Laboratory Tests 09/02/19 11:57 Laboratory Tests 09/02/19 11:57 EKG EKG [] Radiology/Procedures Radiology/Procedures [] Course & Med Decision Making Course & Med Decision Making Pertinent Labs and Imaging studies reviewed. (See chart for details) [] Dragon Disclaimer Dragon Disclaimer This electronic medical record was generated, in whole or in part, using a voice recognition dictation system. Departure Departure Impression: Primary Impression: Encounter for wound re-check Disposition: 01 HOME, SELF-CARE Condition: STABLE Referrals: DONTE MELO MD (PCP) Patient Instructions: Wound Check Additional Instructions: Follow-up with Dr. Rodriguez per his recommendations. KATARINA OWENS Jr. DO Sep 02, 2019 12:46
[2019-09-02] MEDS ORDERED: HEPARIN PF 500 UNIT/5 ML DISP.SYRIN. IVP ONE (13:15)
== END 2019-09-02 13:26 | disposition home or self-care (01) ==
LOC: ER 11:00
DX: Z48.01 Encounter for change or removal of surgical wound dressing (principal); T85.638A Leakage of other specified internal prosthetic devices, implants and grafts, initial encounter; J45.909 Unspecified asthma, uncomplicated; I10 Essential (primary) hypertension; Z86.2 Personal history of diseases of the blood and blood-forming organs and certain disorders involving the immune mechanism; Z88.2 Allergy status to sulfonamides
CPT/HCPCS: 36415; 80053; 85025; 87040; 87071; 87075; 96374; 99284-25

== ENCOUNTER → 2019-09-23 | Day surgery (SDC) | payer MEDICARE ==
[~2019-09-23] MED LIST changes: +LIDOCAINE 1%/EPI 1:100,000 20 ML VIAL. INJ ONE
[2019-09-23 08:14] VITALS: BP 151/76
--- NOTE | 2019-09-23 09:30 | PDOC4 ---
Operative Note Operative Note Date: 09/23/2019 Preoperative diagnosis: Port-A-Cath Operative diagnosis: Same Procedure: Removal of Port-A-Cath Surgeon: Michael Specimen: Port-A-Cath Dictation: Patient is a 79-year-old female is had breast cancer treatment she no longer needs her Port-A-Cath for chemotherapy. Procedure of removal Port-A-Cath was explained to the patient in detail risk benefits were also discussed including bleeding infection alternatives to this procedure also discussed with the patient who seemed to understand and gave both verbal and written consent had the procedure performed. Patient was taken to the minors room. Placed in supine position area of the Port-A-Cath on the left chest was prepped and draped usual sterile fashion using ChloraPrep. Area around the Port-A-Cath was injected with 1% lidocaine with epinephrine incision was made with 15 blade scalpel was carried down through the subcutaneous tissue to the port the suture holding the port in place were cut and the port was removed without any difficulties. Wound was closed in a single layer of 40 septic and a Monocryl Mastisol Steri-Strips and island dressing were applied. Patient tolerated procedure well was discharged home in stable condition all sponge instrument needle counts listed as correct estimate blood loss less than 5 mL REMINGTON BAPTISTE MD Sep 23, 2019 09:30
--- NOTE | 2019-09-26 15:07 | PATHOLOGY ---
[facility] Accession Number: [id number] . 01 Material submitted: . chest - GROSS PORT-A-CATH . 01 Clinical history: . No longer needs Port-A-Cath . 02 Diagnosis: Port-A-Cath (Gross only). (JPM:[facility] 09/26/2019) P 09/26/2019 1447 Local . 02 Electronically signed: . Josse Sheikh MD, Pathologist NPI- [id number] . 01 Gross description: . The specimen is received fresh, labeled "Maye Lugar, Port-A-Cath". Received is a metallic purple triangular port measuring 2.7 x 2.3 x 1.4 cm with attached white tubing measuring 24.8 cm in length by 0.3 cm in diameter. The back of the port is inscribed with "BARD", "CT", and "[id number]". Gross photographs are taken. ([facility]; 09/23/2019) QA/[facility] 09/23/2019 1508 Local . 02 Pathologist provided ICD-10: Z45.2 . 02 CPT . 015989 Specimen Comment: A courtesy copy of this report has been sent to [phone], [phone] Specimen Comment: [id number] Specimen Comment: Report sent to / DR MELO Performed at: [facility] [address], [place] [id number] MD Florentino Farah MD Phone: [phone] Performed at: 02 [facility] [address], [place] [id number] MD Josse Sheikh MD Phone: [phone]
== END ==
LOC: SURG 07:55
PROVIDERS: ATTEND Surgery
DX: Z45.2 Encounter for adjustment and management of vascular access device (principal); I10 Essential (primary) hypertension; E78.00 Pure hypercholesterolemia, unspecified; J45.909 Unspecified asthma, uncomplicated; E89.0 Postprocedural hypothyroidism; D64.9 Anemia, unspecified; F41.9 Anxiety disorder, unspecified; F32.9 Major depressive disorder, single episode, unspecified; Z90.12 Acquired absence of left breast and nipple; Z85.3 Personal history of malignant neoplasm of breast; Z98.49 Cataract extraction status, unspecified eye; Z90.710 Acquired absence of both cervix and uterus; Z72.89 Other problems related to lifestyle; Z96.1 Presence of intraocular lens
CPT/HCPCS: 36590; 88300; J3490

== ENCOUNTER → 2020-12-26 | Outpatient (CLI) | payer MEDICARE ==
[2019-09-23 08:14] VITALS: BP 151/76
[~2020-12-26] MED LIST changes: +IOHEXOL 300 MG/ML 100ML VIAL. IV ONE; -LIDOCAINE 1%/EPI 1:100,000 20 ML VIAL. INJ ONE; +LISI10TA16 PO; -LISI10TA2 PO
--- NOTE | 2020-12-27 12:23 | KCIC ---
Impression: CT chest with IV contrast HISTORY: History of abnormal chest x-ray, cough COMPARISON: None available TECHNIQUE: Axial CT images of the chest were performed with IV contrast. Coronal and sagittal reforma ts are performed. Exposure: One or more of the following individualized dose reduction techniques were utilized for th is examination: 1. Automated exposure control 2. Adjustment of the mA and/or kV according to patien t size 3. Use of iterative reconstruction technique FINDINGS: The central airways are patent. Mild cardiomegaly. Mild aortic atherosclerosis. Left-sided breast pro sthesis is identified.There is mild thickening of the right breast with 4.1 cm density identified in the right lateral breast. There is a 2.1 x 2.0 cm nodule or mass identified in the left upper lobe of the lung. 3 mm nodule arnol ntified in the right middle lobe of the lung. The liver, adrenals grossly unremarkable. Splenectomy changes identified. There is a cystic structure identified in the left kidney measuring 1.9 cm likely cyst. Moderate dege nerative changes thoracic spine. Severe compression change of T12 vertebral body. Minimal superior en dplate compression change of T5 vertebral body. IMPRESSION: 1. 2.1 cm nodule or mass left upper lobe of the lung could be malignancy or metastasis or neoplasm. C onsider PET/CT scan. 2. Mild thickening of the right breast with 4.1 cm density identified in the right lateral breast, co uld be prior surgical changes or scarring or neoplasm. Electronically signed by: Shabbir Garvey MD (12/27/2020 12:21 PM) [id number]
== END ==
LOC: KCIC CT 15:09
PROVIDERS: ATTEND Nurse Practitioner
DX: R91.1 Solitary pulmonary nodule (principal); I51.7 Cardiomegaly; I70.0 Atherosclerosis of aorta; R92.2 Inconclusive mammogram; Z98.82 Breast implant status; Z90.81 Acquired absence of spleen; Z85.3 Personal history of malignant neoplasm of breast
CPT/HCPCS: 71260; 82565; Q9967